=== PATIENT | female | born 1975 | race Caucasian/White ===

== ENCOUNTER 2016-06-20 07:41 | Emergency (ER) | payer MEDICAID ==
[~2016-06-20] VITALS: Ht 162.6 cm; Wt 61.2 kg
[2016-06-20 07:41] VITALS: BP_SYST 132
[2016-06-20 08:19] VITALS: BP_SYST 128
== END 2016-06-20 08:19 | disposition home or self-care (01) ==
LOC: SED 07:41
DX: M54.5 Low back pain (principal); F17.210 Nicotine dependence, cigarettes, uncomplicated
CPT/HCPCS: 99283

== ENCOUNTER 2016-09-23 14:21 | Emergency (ER) | payer MEDICAID ==
[~2016-09-23] VITALS: Ht 162.6 cm; Wt 59.9 kg
[2016-09-23 14:21] VITALS: BP_SYST 132
[2016-09-23 15:37] LABS: BILIRUBIN,URINE NEGATIVE (NEGATIVE); BLOOD, URINE NEGATIVE (NEGATIVE); COLOR,URINE YELLOW (YELLOW); GLUCOSE,URINE NEGATIVE (NEGATIVE); KETONES,URINE NEGATIVE (NEGATIVE); LEUKOCYTE ESTERASE ,URINE NEGATIVE (NEGATIVE); NITRITE, URINE NEGATIVE (NEGATIVE); PROTEIN URINE TRACE (NEGATIVE); UROBILINOGEN,URINE 0.2 (0.2-1.0)
[2016-09-23 15:48] LABS: CLARITY/URINE HAZY (CLEAR)
[2016-09-23 15:50] LABS: BACTERIA,URINE FEW /HPF (None Seen); MUCUS,URINE None Seen /LPF (None Seen); RBC,URINE NONE SEEN /HPF (0-3); WBC,URINE 0-3 /HPF (0-3)
[2016-09-23 15:52] LABS: BASOPHILS # (AUTO) 0.1 K/uL (0.0-0.2); BASOPHILS % (AUTO) 0.5 % (0.0-2.0); EOSINOPHILS # (AUTO) 0.2 K/uL (0.0-0.4); EOSINOPHILS % (AUTO) 2.2 % (0.0-4.0); HEMATOCRIT 24.4 % (36-48); LYMPHOCYTES # (AUTO) 3.2 K/uL (1.0-5.5); MEAN CORPUSCULAR HEMOGLOBIN 21 pg (27-31); MEAN CORPUSCULAR HGB CONC 30 % (32-36); MEAN CORPUSCULAR VOLUME 69 fL (79.0-98.0); MONOCYTES # (AUTO) 0.9 K/uL (0.0-1.0); MONOCYTES % (AUTO) 8.1 % (1.7-9.3); NEUTROPHILS # (AUTO) 6.5 K/uL (1.8-7.7); NEUTROPHILS % (AUTO) 60.2 % (40.0-70.0); PLATELET COUNT (AUTO) 413 K/uL (130-430); RED BLOOD CELL COUNT(AUTO) 3.54 MIL/uL (4.2-6.2); RED CELL DISTRIBUTION WIDTH 16.5 % (9.0-15.0); WHITE BLOOD COUNT (AUTO) 10.9 K/uL (4.8-10.8)
[2016-09-23 15:56] LABS: CALCIUM 8.9 mg/dL (8.4-11.0); CREATININE 0.63 mg/dL (0.55-1.30); POTASSIUM 3.6 mmol/L (3.5-5.1)
[2016-09-23 16:00] LABS: ALBUMIN 3.9 g/dL (3.4-4.8); TOTAL BILIRUBIN 0.4 mg/dL (0.0-1.0); TOTAL PROTEIN, SERUM 7.4 g/dL (6.4-8.3)
[2016-09-23 16:01] LABS: HEMOGLOBIN 7.2 g/dL (12.0-16.0)
[2016-09-23] MEDS ORDERED: MAGNESIUM CITRATE 300 ML ORAL SOLUTION PO ONE (16:30)
[2016-09-23 17:00] VITALS: BP_SYST 129
== END 2016-09-23 17:00 | disposition home or self-care (01) ==
LOC: SED 14:21
DX: K59.00 Constipation, unspecified (principal); D64.9 Anemia, unspecified; F17.210 Nicotine dependence, cigarettes, uncomplicated; Z71.6 Tobacco abuse counseling; Z85.038 Personal history of other malignant neoplasm of large intestine
CPT/HCPCS: 36415; 74020-TC; 80053; 81000-TC; 81025; 85025; 99285

== ENCOUNTER 2017-03-11 12:50 | Emergency (ER) | payer MEDICAID ==
[~2017-03-11] VITALS: Ht 162.6 cm; Wt 59.4 kg
[2017-03-11 12:53] VITALS: BP_SYST 136
--- NOTE | 2017-03-11 13:01 | NUR ---
Patient to ER bed 8 to gown for evaluation. Side rails up. Report given to Valerie BAZAN.
--- NOTE | 2017-03-11 13:05 | NUR ---
Pt complains of "burning of the eyes," bilaterally since today. Per patient, she does not know of any allergies. Pt states eyes feel as if peppers were in her eyes. Noted redness and swelling to bilateral eyes. Pt denies N/V or fever. No other injuries/complaints per patient or noted.
--- NOTE | 2017-03-11 13:05 | NUR ---
Kim ventura in [facility] - 03/11/17 at 1456 by [email or web address] Pt comp
--- NOTE | 2017-03-11 13:13 | NUR ---
ER Dr. Gallegos at bedside examining patient.
[2017-03-11 13:26] LABS: BASOPHILS # (AUTO) 0.1 K/uL (0.0-0.2); BASOPHILS % (AUTO) 0.6 % (0.0-2.0); EOSINOPHILS # (AUTO) 0.2 K/uL (0.0-0.4); EOSINOPHILS % (AUTO) 2.3 % (0.0-4.0); HEMATOCRIT 37.8 % (36-48); HEMOGLOBIN 12.8 g/dL (12.0-16.0); LYMPHOCYTES # (AUTO) 3.1 K/uL (1.0-5.5); LYMPHOCYTES % (AUTO) 37.5 % (20.5-51.5); MEAN CORPUSCULAR HEMOGLOBIN 30 pg (27-31); MEAN CORPUSCULAR HGB CONC 34 % (32-36); MEAN CORPUSCULAR VOLUME 88 fL (79.0-98.0); MONOCYTES # (AUTO) 0.7 K/uL (0.0-1.0); MONOCYTES % (AUTO) 8.5 % (1.7-9.3); NEUTROPHILS # (AUTO) 4.3 K/uL (1.8-7.7); NEUTROPHILS % (AUTO) 51.1 % (40.0-70.0); PLATELET COUNT (AUTO) 265 K/uL (130-430); RED BLOOD CELL COUNT(AUTO) 4.31 MIL/uL (4.2-6.2); RED CELL DISTRIBUTION WIDTH 13.8 % (9.0-15.0); WHITE BLOOD COUNT (AUTO) 8.4 K/uL (4.8-10.8)
[2017-03-11 13:45] LABS: CREATININE 0.72 mg/dL (0.55-1.30); POTASSIUM 3.3 mmol/L (3.5-5.1)
[2017-03-11] MEDS: POTASSIUM CHLORIDE 20 MEQ TAB.PRT.SR PO ONE (14:17)
[2017-03-11 14:24] VITALS: BP_SYST 127
--- NOTE | 2017-03-11 14:24 | NUR ---
Patient given written and verbal discharge instructions and verbalizes understanding. ER MD discussed with patient the results and treatment provided. Patient in stable condition. ID arm band removed. Rx of Zyrtec, Prednisone, Polytrim given. Patient educated on pain management and to follow up with PMD. Pain Scale 2. Opportunity for questions provided and answered.
== END 2017-03-11 14:24 | disposition home or self-care (01) ==
LOC: SED 12:50
DX: H10.13 Acute atopic conjunctivitis, bilateral (principal); F41.9 Anxiety disorder, unspecified
CPT/HCPCS: 36415; 80048; 85025; 99284

== ENCOUNTER 2017-07-31 16:27 | Emergency (ER) | payer MEDICAID ==
[~2017-07-31] VITALS: Ht 162.6 cm; Wt 60.8 kg
[2017-07-31 16:31] VITALS: BP_SYST 134
[2017-07-31 17:24] LABS: MEAN CORPUSCULAR HEMOGLOBIN 29 pg (27-31); WHITE BLOOD COUNT (AUTO) 11.6 K/uL (4.8-10.8)
[2017-07-31] MEDS ORDERED: NS 500 ML IV ONE (17:30)
[2017-07-31 17:35] LABS: EOSINOPHILS # (AUTO) 0.6 K/uL (0.0-0.4); EOSINOPHILS % (AUTO) 4.9 % (0.0-4.0); MEAN CORPUSCULAR VOLUME 87 fL (79.0-98.0)
[2017-07-31 17:37] LABS: BASOPHILS # (AUTO) 0.2 K/uL (0.0-0.2); BASOPHILS % (AUTO) 1.5 % (0.0-2.0); BILIRUBIN,URINE NEGATIVE (NEGATIVE); BLOOD, URINE 2+ (NEGATIVE); CLARITY/URINE SL HAZY (CLEAR); COLOR,URINE YELLOW (YELLOW); GLUCOSE,URINE NEGATIVE (NEGATIVE); HEMATOCRIT 32.3 % (36-48); HEMOGLOBIN 10.9 g/dL (12.0-16.0); KETONES,URINE NEGATIVE (NEGATIVE); LEUKOCYTE ESTERASE ,URINE NEGATIVE (NEGATIVE); LYMPHOCYTES # (AUTO) 2.8 K/uL (1.0-5.5); MEAN CORPUSCULAR HGB CONC 34 % (32-36); MONOCYTES # (AUTO) 0.8 K/uL (0.0-1.0); MONOCYTES % (AUTO) 7.2 % (1.7-9.3); NEUTROPHILS # (AUTO) 7.2 K/uL (1.8-7.7); NEUTROPHILS % (AUTO) 62.4 % (40.0-70.0); NITRITE, URINE NEGATIVE (NEGATIVE); PLATELET COUNT (AUTO) 561 K/uL (130-430); PROTEIN URINE NEGATIVE (NEGATIVE); RED BLOOD CELL COUNT(AUTO) 3.72 MIL/uL (4.2-6.2); RED CELL DISTRIBUTION WIDTH 13.2 % (9.0-15.0); UROBILINOGEN,URINE 0.2 (0.2-1.0)
[2017-07-31 17:39] LABS: CALCIUM 8.7 mg/dL (8.4-11.0); CREATININE 0.63 mg/dL (0.55-1.30); INR 0.9 (0.8-1.2); POTASSIUM 3.9 mmol/L (3.5-5.1); PROTHROMBIN TIME 9.5 SECS (9.5-12.5)
[2017-07-31 17:43] LABS: ALBUMIN 3.2 g/dL (3.4-4.8); TOTAL BILIRUBIN 0.1 mg/dL (0.0-1.0)
[2017-07-31 17:53] LABS: BACTERIA,URINE FEW /HPF (None Seen); MUCUS,URINE 2+ /LPF (None Seen)
[2017-07-31 17:54] LABS: YEAST,URINE Few /HPF (None Seen)
[2017-07-31] MEDS ORDERED: MORPHINE 4 MG/ML INJ. SYRINGE IVP ONE (18:00)
[2017-07-31] MEDS ORDERED: DIPHENHYDRAMINE INJ 50 MG/ML VIAL IVP ONE (18:00)
[2017-07-31 19:01] VITALS: BP_SYST 124
== END 2017-07-31 18:58 | disposition home or self-care (01) ==
LOC: SED 16:27
DX: R10.32 Left lower quadrant pain (principal); F41.9 Anxiety disorder, unspecified; Z90.710 Acquired absence of both cervix and uterus; Z86.2 Personal history of diseases of the blood and blood-forming organs and certain disorders involving the immune mechanism
CPT/HCPCS: 36415; 71045; 74176; 80053; 81000; 83605; 83690; 85025; 85610; 87040; 93005; 96374; 96375; 99285; J1200; J2270; J7030; J7040

== ENCOUNTER 2017-10-26 09:58 | Emergency (ER) | payer MEDICAID ==
[~2017-10-26] VITALS: Ht 162.6 cm; Wt 61.2 kg
[2017-10-26 10:05] VITALS: BP_SYST 130
[2017-10-26 10:41] VITALS: BP_SYST 118
== END 2017-10-26 10:40 | disposition home or self-care (01) ==
LOC: SED 09:58
DX: H10.9 Unspecified conjunctivitis (principal); F41.9 Anxiety disorder, unspecified; F32.9 Major depressive disorder, single episode, unspecified; F17.210 Nicotine dependence, cigarettes, uncomplicated; Z86.2 Personal history of diseases of the blood and blood-forming organs and certain disorders involving the immune mechanism; Z90.710 Acquired absence of both cervix and uterus
CPT/HCPCS: 99283

== ENCOUNTER 2018-04-24 19:56 | Emergency (ER) | payer MEDICAID ==
[~2018-04-24] VITALS: Ht 162.6 cm; Wt 61.2 kg
[2018-04-24 20:00] VITALS: BP_SYST 123
--- NOTE | 2018-04-24 21:00 | NUR ---
CALLED PT NAME IN THE WR,NO RESPONSE.
--- NOTE | 2018-04-24 21:05 | NUR ---
CALLED PT NAME IN THE WR,NO RESPONSE.
--- NOTE | 2018-04-24 21:15 | NUR ---
CALLED PT NAME IN THE WR,NO RESPONSE.
== END 2018-04-24 21:15 | disposition left against medical advice (07) ==
LOC: SED 19:56
DX: M54.9 Dorsalgia, unspecified (principal); R07.81 Pleurodynia; F41.9 Anxiety disorder, unspecified; F32.9 Major depressive disorder, single episode, unspecified; Z86.2 Personal history of diseases of the blood and blood-forming organs and certain disorders involving the immune mechanism; Z53.21 Procedure and treatment not carried out due to patient leaving prior to being seen by health care provider

== ENCOUNTER 2020-05-08 18:14 | Emergency (ER) | payer MEDICAID ==
[~2020-05-08] VITALS: Ht 162.6 cm; Wt 62.6 kg
[2020-05-08 18:21] VITALS: BP_SYST 125
--- NOTE | 2020-05-08 18:32 | NUR ---
AMBULATED TO BED3
--- NOTE | 2020-05-08 18:45 | NUR ---
Patient AAO and ambulatory arrived to ED C/O lower back pain x3 days. Patient stated that she has had this before and it went away. History of ovarian cysts, hysterectomy, x2 c-sections. Patient denies back pain coming from any physical injury. currently stating 7/10 on the pain scale. Patient resting comfortably and awaiting for MD evaluation.
--- NOTE | 2020-05-08 19:30 | NUR ---
Dr. Sood at bedside for patient evaluation.
[2020-05-08] MEDS ORDERED: LIDOCAINE PATCH 5% 1 EA TP ONE (19:45)
[2020-05-08] MEDS ORDERED: KETOROLAC TROMETHAMINE 30 MG VIAL IM ONE (19:45)
[2020-05-08] MEDS ORDERED: CYCLOBENZAPRINE HCL 10 MG TABLET (FLEXERIL) PO ONE (19:45)
[2020-05-08] MEDS ORDERED: ACETAMINOPHEN 500 MG TABLET PO ONE (19:45)
[2020-05-08 19:55] LABS: BILIRUBIN,URINE NEGATIVE (NEGATIVE); COLOR,URINE YELLOW (YELLOW); GLUCOSE,URINE NEGATIVE (NEGATIVE); KETONES,URINE NEGATIVE (NEGATIVE); LEUKOCYTE ESTERASE ,URINE 2+ (NEGATIVE); NITRITE, URINE NEGATIVE (NEGATIVE); PROTEIN URINE NEGATIVE (NEGATIVE); UROBILINOGEN,URINE 0.2 (0.2-1.0)
--- NOTE | 2020-05-08 19:56 | NUR ---
medication administered as ordered.
[2020-05-08 19:57] LABS: BLOOD, URINE TRACE (NEGATIVE); CLARITY/URINE HAZY (CLEAR)
[2020-05-08 20:14] LABS: BACTERIA,URINE MANY /HPF (None Seen)
[2020-05-08 20:15] LABS: MUCUS,URINE 1+ /LPF (None Seen)
[2020-05-08] MEDS ORDERED: CEPH250C PO (20:27)
[2020-05-08] MEDS ORDERED: IBUP-1969 PO (20:28)
[2020-05-08 20:40] VITALS: BP_SYST 125
--- NOTE | 2020-05-08 20:40 | NUR ---
Patient given written and verbal discharge instructions and verbalizes understanding. Dr. Barrie GREENE MD discussed with patient the results and treatment provided. Patient in stable condition. ID arm band removed. Rx of given. Patient educated on pain management and to follow up with PMD. Pain Scale 0/10. Opportunity for questions provided and answered. Medication side effect fact sheet provided.
== END 2020-05-08 20:40 | disposition home or self-care (01) ==
LOC: SED 18:14
DX: M54.5 Low back pain (principal); N39.0 Urinary tract infection, site not specified; F41.9 Anxiety disorder, unspecified; M19.90 Unspecified osteoarthritis, unspecified site; Z86.2 Personal history of diseases of the blood and blood-forming organs and certain disorders involving the immune mechanism
CPT/HCPCS: 81000; 87086; 99284; J1885

== ENCOUNTER 2023-07-27 14:36 | Emergency (ER) | payer OTHER ==
[~2023-07-27] VITALS: Ht 160 cm; Wt 54.4 kg
[~2023-07-27 14:36] MED LIST: CEPH250C PO; IBUP-1969 PO
[2023-07-27 14:46] VITALS: BP_SYST 109; PULSE 108; RESP 18; TEMP 98.3; O2SAT 98
[2023-07-27] MEDS ORDERED: SULF1TAB47 PO (14:56)
[2023-07-27] MEDS ORDERED: PRED20TA PO (14:56)
[2023-07-27] MEDS ORDERED: CETI-80 PO (14:56)
[2023-07-27] MEDS ORDERED: HYDC1% TP (14:56)
[2023-07-27 15:19] VITALS: BP_SYST 109; PULSE 109; RESP 20; TEMP 97.8; O2SAT 99
== END 2023-07-27 15:18 | disposition home or self-care (01) ==
LOC: SED 14:36
DX: R21 Rash and other nonspecific skin eruption (principal); F41.9 Anxiety disorder, unspecified; F32.A Depression, unspecified; Z79.899 Other long term (current) drug therapy; Z79.2 Long term (current) use of antibiotics
CPT/HCPCS: 99283